=== PATIENT | male | born 1975 | race Caucasian/White ===

== ENCOUNTER 2019-10-27 07:03 | Day surgery (SDC) | payer OTHER, SELFPAY ==
[2019-07-22 14:22] VITALS: BMI 38.6
[2019-10-23 11:15] LABS: Thyroid Stim Hormone (TSH) 2.17 uIU/mL (0.358-3.74)
[2019-10-27] VITALS (7 sets, daily range): BP systolic 145–151; BP diastolic 82–96; PULSE 60–108; RESP 16–18; TEMP 36.6–37.1; O2SAT 92–98; BMI 42.7
--- NOTE | 2019-10-27 07:30 | PCM.DC ---
You will use the following diet at home:: No restrictions Discharge Activity: May not drive while taking narcotic pain medications. Call your doctor if your incision/area has: Increased Pain/ Swelling Additional Dressing/Incision Instructions:: sleep with head of bed elevated. saline spray to nostrils 5 times daily. mupirocin to nostrils twice daily. Allergies/Adverse Reactions: Allergies No Known Allergies Allergy (Verified 10/27/19 07:24) Medications to take at Discharge Levothyroxine [Synthroid] 75 mcg PO DAILY 10/22/19 Losartan Potassium [Cozaar] 100 mg PO DAILY 10/22/19 Orders to be completed after discharge: Basic Metabolic Profile (BMP) Time Frame: 10/27/19, Facility: [facility], Location: Laboratory CBC-Complete Blood Cnt No Diff Time Frame: 10/27/19, Facility: [facility], Location: Laboratory Primary Care Physician: Jose Eduardo Blackmon MD [Primary Care Provider] - Test Results: Test results from this visit will be discussed in further detail at your follow-up appointment, if applicable. Please Follow Up With: Jonathon Carson MD When: 1 week
[2019-10-27 07:31] LABS: Hematocrit 47.7 % (40-54); Hemoglobin 16.4 g/dL (13.0-16.5); Mean Corp Hgb Conc 34.4 g/dL (32-36); Mean Corpuscular Hgb 30.3 pg (27.0-32.0); Mean Platelet Vol. 10.6 fl (6.2-12.0); Platelet Count 171 K/mm3 (150-450); RBC Distribution Width CV 12.3 % (11.6-14.6); RBC Distribution Width SD 39.6 fl (35.1-43.9); Red Blood Count 5.42 M/mm3 (4.6-6.2)
--- NOTE | 2019-10-27 07:31 | PCM.OPRPT ---
Problem List (1) Nasal congestion Status: Chronic (2) Nasal valve collapse Status: Chronic (3) Nasal turbinate hypertrophy Status: Chronic (4) Chronic serous otitis media of left ear Status: Chronic Report of Operation Date of Procedure: 10/27/19 Pre-Operative Diagnosis: 1. nasal septal deviation. 2. nasal congestion. 3. internal nasal valve collapse, right and left. 4. inferior turbinate hypertrophy, right and left. 5. chronic serous otitis, left Post-Operative Diagnosis: 1. nasal septal deviation. 2. nasal congestion. 3. internal nasal valve collapse, right and left. 4. inferior turbinate hypertrophy, right and left. 5. chronic serous otitis, left Surgery/Procedure Performed:: 1. septoplasty. 2. submucous resection inferior turbinates, right and left. 3. correction internal nasal valve collapse, right and left. 4. placement pressure equalization tube, left ear Type of Anesthesia:: General Description of Procedure: on the day of the procedure, after appropriate informed consent was obtained, the patient was brought to the operating room and placed in supine position on the operating table. he was placed under general endotracheal anesthesia by the anesthesiologist. the endotracheal tube was secured, the eyes were taped. the bilateral nasal cavities were decongested with oxymetazoline soaked pledgets. the septum and turbinates were injected with lidocaine/epinephrine. the face was prepped and draped in sterile fashion. the left ear was examined with the binocular operating microscope. a speculum was placed. the tympanic membrane was viewed; there was severe adhesive otitis. a superior/anterior myringotomy was made and a T tube was placed. floxin otic drops were instilled. a right sided marginal incision was made with a 15 blade. the anterior septum was exposed and submucoperichondrial flaps were developed on the right and left using a deloris elevator. this was taken posteriorly to the bony-cartilaginous junction and inferiorly to the maxillary crest. a 1.5 cm L-strut was demarcated and the posterior/inferior septum was resected with a D-knife. deviated portions of the perpendicular plate of ethmoid and vomer were removed with a vika pate. the submucoperichondrial flaps and marginal incision were closed with 4-0 chromic quilting sutures. the head of the right inferior turbinate was incised with a 15 blade. this was dissected submucosally with a deloris, reduced using suction electrocautery and outfractured using a boies elevator. the head of the left inferior turbinate was incised with a 15 blade. this was dissected submucosally with a deloris, reduced using suction electrocautery and outfractured using a boies elevator. the latera trocar was loaded. the external nasal skin was marked appropriately. the left ala was everted with a double pronged skin hook. the vestibular skin was entered and the trocar advanced deep to the skin and soft tissue envelope and lateral to the upper lateral cartilage and nasal bones. the implant was deployed and the trocar removed. the right ala was everted with a double pronged skin hook. the vestibular skin was entered and the trocar advanced deep to the skin and soft tissue envelope and lateral to the upper lateral cartilage and nasal bones. the implant was deployed and the trocar removed. hernandes splints were placed and sutured. an orogastric tube was inserted and gastric/pharyngeal contents suctioned. the patient was awoken from anesthesia and transferred to the PACU in stable condition.
[2019-10-27] MEDS: Lactated Ringers 1,000 ML 100 ML IV (07:33)
[2019-10-27 07:44] LABS: Anion Gap 5 (5-15); BUN 11 mg/dL (7-18); Calcium,Total 8.6 mg/dL (8.5-10.1); Chloride 108 mmol/L (98-107); Creatinine, Serum 1.22 mg/dL (0.70-1.30); EST Glomerular Filtration Rate 68 mL/min (>60); Est Glom Filt Rate - Afr Amer 83 mL/min (>60); Estimated Creatinine Clearance 84.81 ml/min; Glucose 111 mg/dL (74-106); Potassium 3.9 mmol/L (3.5-5.1); Sodium Level 139 mmol/L (136-145)
[2019-10-27] MEDS: Ciprofloxacin 0.3% 2.5ml Bottle 1 DRP (08:55)
[2019-10-27] MEDS: Oxymetazoline 0.05% 1 SPRAY SPRAY.BTL 15 SPRAY (09:00)
[2019-10-27] MEDS: Mupirocin Ointment 22gm Tube 1 APPLIC (09:17)
== END 2019-10-27 12:38 | disposition home or self-care (01) ==
LOC: SDC 07:03 → AC 07:04
PROVIDERS: Anesthesiology; Family Provider Family Medicine; PCP Family Medicine; Referring Provider Otolaryngology; Visit Provider Otolaryngology
PROC: (CPT 30520; principal; 2019-10-27 08:15)
DX: J34.3 Hypertrophy of nasal turbinates (principal); M95.0 Acquired deformity of nose; J34.2 Deviated nasal septum; R09.81 Nasal congestion; H65.22 Chronic serous otitis media, left ear; I10 Essential (primary) hypertension; G47.30 Sleep apnea, unspecified; E07.9 Disorder of thyroid, unspecified; Z79.899 Other long term (current) drug therapy; Z87.891 Personal history of nicotine dependence
CPT/HCPCS: 00160; 30140; 30465; 30520; 69436; 36415; 80048; 84443; 85027; J7120; J2405